=== PATIENT | male | born 1990 | race Caucasian/White ===

== ENCOUNTER 2023-05-24 21:44 | Emergency (ER) | payer MEDICAID ==
[2023-05-24 22:58] LABS: BASOPHILS ABSOLUTE AUTO 0.1 K/mm3 (0.0-0.2); BASOPHILS PERCENT AUTO 0.5 % (0.0-1.0); EOSINOPHILS ABSOLUTE AUTO 0.1 K/mm3 (0.0-0.4); EOSINOPHILS PERCENT AUTO 0.3 % (0.0-6.0); HEMATOCRIT 49.4 % (42.0-52.0); HEMOGLOBIN 16.5 gm/dl (14.0-18.0); IMMATURE GRAN ABSOLUTE AUTO 0.08 K/mm3 (0.00-0.05); IMMATURE GRAN PERCENT AUTO 0.5 % (0.0-0.4); INR 1.04; LYMPHOCYTES ABSOLUTE AUTO 2.4 K/mm3 (1.0-4.8); MEAN CORPUSCULAR HEMOGLOBIN 28.3 pg (28.0-32.0); MEAN CORPUSCULAR HGB CONC 33.4 g/dl (32.0-36.0); MEAN CORPUSCULAR VOLUME 84.6 fl (83.0-99.0); MEAN PLATELET VOLUME 12.1 fl (9.4-12.4); MONOCYTES ABSOLUTE AUTO 0.8 K/mm3 (0.0-0.8); MONOCYTES PERCENT AUTO 5.2 % (0.0-8.0); NEUTROPHILS ABSOLUTE AUTO 12.4 K/mm3 (1.8-7.7); NEUTROPHILS PERCENT AUTO 78.5 % (41.0-71.0); PLATELET COUNT,PLT 290 K/mm3 (150-400); PROTHROMBIN TIME 11.1 SECONDS (9.7-12.0); RED BLOOD CELL COUNT 5.84 M/mm3 (4.52-5.90); WHITE BLOOD CELL COUNT,WBC 15.81 K/mm3 (3.9-11.3)
[2023-05-24 22:59] LABS: PTT,PARTIAL THROMBOPLSTIN TIME 29.2 SECONDS (21.7-31.4)
[2023-05-24 23:02] LABS: ANION GAP 18.3 (5-15); POTASSIUM,K 4.3 mEq/L (3.5-5.1)
[2023-05-24 23:03] LABS: ALBUMIN 3.9 g/dl (3.4-5.0); BILIRUBIN TOTAL 0.5 mg/dL (0.2-1.0); CALCIUM 9.9 mg/dL (8.5-10.1); EST CRCL DRUG DOSING (CG) 107.03 mL/min; PROTEIN TOTAL,TP 7.9 g/dl (6.4-8.2)
[2023-05-24 23:05] LABS: LACTIC ACID 1.1 mmol/L (0.4-2.0)
[2023-05-24] MEDS: Lactulose Soln 10 GM/15 ML 30 ML UD Cup PO ONE (23:07)
[2023-05-24 23:17] LABS: APPEARANCE,URINE CLEAR (Clear); BILIRUBIN,URINE NEGATIVE (Negative); COLOR,URINE YELLOW (Yellow); GLUCOSE,URINE 2+ (Negative); KETONES,URINE 4+ (Negative); LEUKOCYTE ESTERASE,URINE NEGATIVE (Negative); NITRITE,URINE NEGATIVE (Negative); OCCULT BLOOD,URINE TRACE-INTACT (Negative); PROTEIN,URINE NEGATIVE (Negative); UROBILINOGEN,URINE 0.2 (0.2-1.0)
[2023-05-24 23:32] LABS: BACTERIA,URINE FEW /hpf (FEW); EPITHELIAL CELLS,URINE 0-5 /hpf (0-5); MUCUS,URINE NOT SEEN /hpf (FEW); RBC,URINE 0-5 /hpf (0-5); WBC,URINE 0-5 /hpf (0-5)
== END 2023-05-25 00:30 | disposition home or self-care (01) ==
LOC: JD.ED 21:44
DX: K59.01 Slow transit constipation (principal); R73.09 Other abnormal glucose; E78.00 Pure hypercholesterolemia, unspecified; Z88.8 Allergy status to other drugs, medicaments and biological substances
CPT/HCPCS: 36415; 70450; 80053; 81001; 83605; 85025; 85610; 85730; 99284; A9270